=== PATIENT | male | born 1995 | race Caucasian/White ===

== ENCOUNTER 2016-06-13 22:35 | Emergency (ER) | payer OTHER ==
--- NOTE | 2016-06-13 23:36 | ED CLINICAL REPORT ---
Clinical Report - Physicians/Mid Levels [facility] [address] [place] [address] 06/13/2016 22:36 Patient: PRIYANKA IVEY Time Seen: 22:44; initial patient contact, initial documentation, patient care assumed. Arrived- By private vehicle. Historian- patient and spouse. HISTORY OF PRESENT ILLNESS Chief Complaint: LESION and BOIL. This started about 6 days ago and is still present. Not itchy or burning. It is described as painful. It has been located in the perianal area. No cause has been identified. Similar symptoms previously: Frequently, worse. Recent medical care: The patient was seen recently in a clinic. ( went to clinic 04/11, given rx bactrim, no better, swelling worse). REVIEW OF SYSTEMS The patient has had fever of 101 F. All systems otherwise negative, except as recorded above. PAST HISTORY See nurses notes. PROBLEMS: Diarrhea. Osteomyelitis. --22:49 Suleiman Gamez R.N. SOCIAL HISTORY Light tobacco smoker. No alcohol use or drug use. No recent travel. Is a local resident. He lives with spouse. FAMILY HISTORY Negative. ADDITIONAL NOTES The nursing notes have been reviewed with agreement regarding the chief complaint, HPI, ROS, PMH and patient medications and allergies. PHYSICAL EXAM Vital Signs: 06/13/2016 22:43 BP: 120/72. HR: 100. RR: 16. O2 saturation: 99%. Temp: 99.2 F. Have been reviewed as normal and appear to be correct. Appearance: Alert. Oriented X3. No acute distress. Neck: Neck supple. Respiratory: No respiratory distress. Skin: Skin warm and dry. Normal skin color. No rash. Normal skin turgor. Single medium abscess with fluctuance and pointing to the perianal area. No drainage or cellulitis. Extremities: Normal external inspection. Extremities nontender. Neuro: Oriented X 3. No motor deficit. No sensory deficit. PROGRESS AND PROCEDURES Incision & Drainage of Abscess: The abscess is located in the perianal area. The risks of the procedure, benefits and alternatives were explained. Consent was obtained. Local anesthesia provided using 1% lidocaine. Skin cleansed with Betadine. The abscess was incised with a #11 surgical blade. A large amount of pus was drained. Cavity was irrigated with saline and packed with gauze. Sample obtained for cultures. Estimated blood loss: 30 mL. ( probed to break up inoculates, packed with 1/4inch iodoform, tolerated procedure well without issues). Patient and spouse counseled in person regarding the patient's stable condition and diagnosis. 23:28. Differential Diagnosis: Other possible considerations: abscess, hemorrhoid, fistula. Above considerations are based on history and physical exam. Differential diagnosis was discussed with patient and patient's spouse. Disposition: Discharged home in good and improved condition (23:28). Condition: good and stable. CLINICAL IMPRESSION Single deep abscess with incision and drainage. INSTRUCTIONS Warnings: GENERAL WARNINGS: Return or contact your physician immediately if your condition worsens or changes unexpectedly, if not improving as expected, or if other problems arise. Specifically return if problem worsens. Prescription Medications: Zofran 4 mg: Take 1 orally every six hours as needed for nausea/vomiting. Dispense ten (10). No refills. Substitution is permissible. R[place]y 5 mg / 325 mg tablets: take 1 to 2 orally every 6 hours as needed for pain. Dispense fifteen (15). No refills. Substitution is permissible. Motrin 800 mg tablets: take 1 tablet orally every 8 hours as needed for pain. Dispense thirty (30). No refills. Substitution is permissible. Follow-up: Follow up with your doctor in two days as needed and for packing removal. Call for an appointment. Summary of care provided to patient and family. Understanding of the discharge instructions verbalized by patient. Follow-up with: Vicente Roland MD, General Surgeon, , [facility], [address] [place] [address] Follow up in about one week as needed. Call for an appointment. Summary of care provided to patient. (Electronically signed by Cecily Landin A.R.N.P. 06/14/2016 14:38)
--- NOTE | 2016-06-13 23:36 | ED CLINICAL REPORT ---
Clinical Report - Physicians/Mid Levels [facility] [address] [place] [address] 06/13/2016 22:36 Patient: PRIYANKA IVEY Time Seen: 22:44; initial patient contact, initial documentation, patient care assumed. Arrived- By private vehicle. Historian- patient and spouse. HISTORY OF PRESENT ILLNESS Chief Complaint: LESION and BOIL. This started about 6 days ago and is still present. Not itchy or burning. It is described as painful. It has been located in the perianal area. No cause has been identified. Similar symptoms previously: Frequently, worse. Recent medical care: The patient was seen recently in a clinic. ( went to clinic 04/11, given rx bactrim, no better, swelling worse). REVIEW OF SYSTEMS The patient has had fever of 101 F. All systems otherwise negative, except as recorded above. PAST HISTORY See nurses notes. PROBLEMS: Diarrhea. Osteomyelitis. --22:49 Suleiman Gamez R.N. SOCIAL HISTORY Light tobacco smoker. No alcohol use or drug use. No recent travel. Is a local resident. He lives with spouse. FAMILY HISTORY Negative. ADDITIONAL NOTES The nursing notes have been reviewed with agreement regarding the chief complaint, HPI, ROS, PMH and patient medications and allergies. PHYSICAL EXAM Vital Signs: 06/13/2016 22:43 BP: 120/72. HR: 100. RR: 16. O2 saturation: 99%. Temp: 99.2 F. Have been reviewed as normal and appear to be correct. Appearance: Alert. Oriented X3. No acute distress. Neck: Neck supple. Respiratory: No respiratory distress. Skin: Skin warm and dry. Normal skin color. No rash. Normal skin turgor. Single medium abscess with fluctuance and pointing to the perianal area. No drainage or cellulitis. Extremities: Normal external inspection. Extremities nontender. Neuro: Oriented X 3. No motor deficit. No sensory deficit. PROGRESS AND PROCEDURES Incision & Drainage of Abscess: The abscess is located in the perianal area. The risks of the procedure, benefits and alternatives were explained. Consent was obtained. Local anesthesia provided using 1% lidocaine. Skin cleansed with Betadine. The abscess was incised with a #11 surgical blade. A large amount of pus was drained. Cavity was irrigated with saline and packed with gauze. Sample obtained for cultures. Estimated blood loss: 30 mL. ( probed to break up inoculates, packed with 1/4inch iodoform, tolerated procedure well without issues). Patient and spouse counseled in person regarding the patient's stable condition and diagnosis. 23:28. Differential Diagnosis: Other possible considerations: abscess, hemorrhoid, fistula. Above considerations are based on history and physical exam. Differential diagnosis was discussed with patient and patient's spouse. Disposition: Discharged home in good and improved condition (23:28). Condition: good and stable. CLINICAL IMPRESSION Single deep abscess with incision and drainage. INSTRUCTIONS Warnings: GENERAL WARNINGS: Return or contact your physician immediately if your condition worsens or changes unexpectedly, if not improving as expected, or if other problems arise. Specifically return if problem worsens. Prescription Medications: Zofran 4 mg: Take 1 orally every six hours as needed for nausea/vomiting. Dispense ten (10). No refills. Substitution is permissible. [place] 5 mg / 325 mg tablets: take 1 to 2 orally every 6 hours as needed for pain. Dispense fifteen (15). No refills. Substitution is permissible. Motrin 800 mg tablets: take 1 tablet orally every 8 hours as needed for pain. Dispense thirty (30). No refills. Substitution is permissible. Follow-up: Follow up with your doctor in two days as needed and for packing removal. Call for an appointment. Summary of care provided to patient and family. Understanding of the discharge instructions verbalized by patient. Follow-up with: Vicente Roland MD, General Surgeon, , [facility], [address] [place] [address] Follow up in about one week as needed. Call for an appointment. Summary of care provided to patient. (Electronically signed by Cecily Landin A.R.N.P. 06/14/2016 14:38)
--- NOTE | 2016-06-13 23:36 | ED NURSING NOTES ---
Clinical Report - Nurses [facility] [address] [place] [address] 06/13/2016 22:36 Patient: PRIYANKA IVEY TRIAGE Triage time 2243. Acuity: LEVEL 3. Chief Complaint: SKIN LESION and TENDER AREA. --22:56 Suleiman Gamez R.N. 22:43 06/13/16. BP: 120/72. HR: 100. RR: 16. O2 saturation: 99%. Temp: 99.2 F. Pain level now 03/09. --22:56 Suleiman Gamez R.N. Weight: 146.5 kg stated. Height/Length: 73 inches Per Patient. BMI: 42.6. --22:56 Suleiman Gamez R.N. Medications Sulfamethoxazole-Trimethoprim Oral. --22:49 Suleiman Gamez R.N. Allergies No Known Drug Allergy. --22:49 Suleiman Gamez R.N. History Arrived by private vehicle, and accompanied by spouse. Reported as located on the perineum. It is described as painful. 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 PAST MEDICAL HX: ( pt has had 4 previous. sent to specialist for r/o fistula. pt states this is the worst it has ever been.). SOCIAL HX: Light tobacco smoker- less than 1/2 a pack per day. The patient may have been exposed to MRSA. FALL RISK ASSESSMENT: Fall risk assessment completed. No fall risk identified. NUTRITIONAL RISK ASSESSMENT: The nutritional risk assessment revealed no deficiencies. FUNCTIONAL ASSESSMENT: Functional assessment: no impairments noted. LEARNING NEEDS ASSESSMENT: The learning needs assessment revealed no barriers. SKIN INTEGRITY ASSESSMENT: Skin integrity risk assessment completed. No skin integrity risk identified. --22:56 Suleiman Gamez R.N. PROBLEMS: Diarrhea. Osteomyelitis. --22:49 Suleiman Gamez R.N. Interventions ID band on patient. --22:56 Suleiman Gamez R.N. PHYSICAL ASSESSMENT Ambulatory to room. GENERAL / NEURO / PSYCH: Alert. Oriented X 4. HEENT: Mucous membranes are pink. RESPIRATORY: Respirations not labored. CVS: Capillary refill less than 2 seconds. GI / : Abdomen nontender. SKIN: Skin is warm and dry. Normal skin turgor. --22:56 Suleiman Gamez R.N. NURSING PROGRESS NOTES Patient gowned. Head of bed elevated. Reassurance given. Patient identifiers checked. Call light placed in reach. Side rails up x 2. Bed placed in lowest position. Brakes of bed on. --22:56 Suleiman Gamez R.N. ( wound dressing provided. pt is familiar with care from previous.). --23:28 Suleiman Gamez R.N. 23:31 06/13/2016 Hydrocodone-APAP (Hydrocodone-Acetaminophen) PO 5/325 mg Tablets 1 tab given. Allergies verified, confirmed 5 rights and sedative warning given to the patient and patient's family. --23:31 Suleiman Gamez R.N. DISPOSITION / DISCHARGE Departure time: 2355. Condition at departure: improved and stable. No learning barriers present. Discharge instructions provided and reviewed with the patient and spouse. Reviewed warnings. Reviewed medication(s). Treatments reviewed. Reviewed referrals. Activity restrictions reviewed. Patient and spouse verbalized understanding. Written instructions provided in Polish. The patient was discharged by the physician assistant manager. He was discharged home and accompanied by spouse. He left the Emergency Department ambulatory and via private vehicle. Spouse driving. FALL RISK ASSESSMENT: Fall risk assessment completed. No fall risk identified. --00:21 Suleiman Gamez R.N. 00:18 06/14/16. BP: 132/68. HR: 88. RR: 16. O2 saturation: 99%. Temp: 99 F. Pain level now 03/09. --00:21 Suleiman Gamez R.N. Locked/Released at 06/14/2016 0:22 by Suleiman Gamez R.N.
--- NOTE | 2016-06-13 23:36 | ED ORDER SUMMARY ---
..... Patient: PRIYANKA IVEY OrderSheet [facility] VisitID: [id number] [address] [place] [address] 21y, M Registration Date/Time: 06/13/2016 ORDER SHEET Weight: 146.5 kg (stated) Allergies: No Known Drug Allergy GENERAL ORDERS: I&D Tray (22:52 06/13/2016 HBivens A.R.N.P.) (23:15 JBullard R.N.) Dress Wounds (22:52 06/13/2016 HBivens A.R.N.P.) (23:27 JBullard R.N.) Culture, Wound Deep (Incision) (perianal) Urgent (23:29 06/13/2016 HBivens A.R.N.P.) (23:31 JBullard R.N.) MEDICATION ORDERS: Hydrocodone-APAP PO 5/325 mg (NOW, HIGH ALERT MEDICATION) (23:25 06/13/2016 HBivens A.R.N.P.) (23:31 JBullard R.N.) IV FLUIDS: ORDER SHEET NOTES: [Electronically signed by Suleiman Gamez R.N. (00:22 06/14/2016)] [Electronically signed by Cecily LandinR.N.P. (14:38 06/14/2016)] [Electronically locked/signed by Suleiman Gamez R.N. (00:22 06/14/2016)]
--- NOTE | 2016-06-13 23:36 | ED ORDER SUMMARY ---
..... Patient: PRIYANKA IVEY OrderSheet [facility] VisitID: [id number] [address] [place] [address] 21y, M Registration Date/Time: 06/13/2016 ORDER SHEET Weight: 146.5 kg (stated) Allergies: No Known Drug Allergy GENERAL ORDERS: I&D Tray (22:52 06/13/2016 HBivens A.R.N.P.) (23:15 JBullard R.N.) Dress Wounds (22:52 06/13/2016 HBivens A.R.N.P.) (23:27 JBullard R.N.) Culture, Wound Deep (Incision) (perianal) Urgent (23:29 06/13/2016 HBivens A.R.N.P.) (23:31 JBullard R.N.) MEDICATION ORDERS: Hydrocodone-APAP PO 5/325 mg (NOW, HIGH ALERT MEDICATION) (23:25 06/13/2016 HBivens A.R.N.P.) (23:31 JBullard R.N.) IV FLUIDS: ORDER SHEET NOTES: [Electronically signed by Suleiman Gamez R.N. (00:22 06/14/2016)] [Electronically signed by Cecily LandinR.N.P. (14:38 06/14/2016)] [Electronically locked/signed by Suleiman Gamez R.N. (00:22 06/14/2016)]
--- NOTE | 2016-06-13 23:36 | ED NURSING NOTES ---
Clinical Report - Nurses [facility] [address] [place] [address] 06/13/2016 22:36 Patient: PRIYANKA IVEY TRIAGE Triage time 2243. Acuity: LEVEL 3. Chief Complaint: SKIN LESION and TENDER AREA. --22:56 Suleiman Gamez R.N. 22:43 06/13/16. BP: 120/72. HR: 100. RR: 16. O2 saturation: 99%. Temp: 99.2 F. Pain level now 03/09. --22:56 Suleimna Gamez R.N. Weight: 146.5 kg stated. Height/Length: 73 inches Per Patient. BMI: 42.6. --22:56 Suleiman Gamez R.N. Medications Sulfamethoxazole-Trimethoprim Oral. --22:49 Suleiman Gamez R.N. Allergies No Known Drug Allergy. --22:49 Suleiman Gamez R.N. History Arrived by private vehicle, and accompanied by spouse. Reported as located on the perineum. It is described as painful. 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 PAST MEDICAL HX: ( pt has had 4 previous. sent to specialist for r/o fistula. pt states this is the worst it has ever been.). SOCIAL HX: Light tobacco smoker- less than 1/2 a pack per day. The patient may have been exposed to MRSA. FALL RISK ASSESSMENT: Fall risk assessment completed. No fall risk identified. NUTRITIONAL RISK ASSESSMENT: The nutritional risk assessment revealed no deficiencies. FUNCTIONAL ASSESSMENT: Functional assessment: no impairments noted. LEARNING NEEDS ASSESSMENT: The learning needs assessment revealed no barriers. SKIN INTEGRITY ASSESSMENT: Skin integrity risk assessment completed. No skin integrity risk identified. --22:56 Suleiman Gamez R.N. PROBLEMS: Diarrhea. Osteomyelitis. --22:49 Suleiman Gamez R.N. Interventions ID band on patient. --22:56 Suleiman Gamez R.N. PHYSICAL ASSESSMENT Ambulatory to room. GENERAL / NEURO / PSYCH: Alert. Oriented X 4. HEENT: Mucous membranes are pink. RESPIRATORY: Respirations not labored. CVS: Capillary refill less than 2 seconds. GI / : Abdomen nontender. SKIN: Skin is warm and dry. Normal skin turgor. --22:56 Suleiman Gamez R.N. NURSING PROGRESS NOTES Patient gowned. Head of bed elevated. Reassurance given. Patient identifiers checked. Call light placed in reach. Side rails up x 2. Bed placed in lowest position. Brakes of bed on. --22:56 Suleiman Gamez R.N. ( wound dressing provided. pt is familiar with care from previous.). --23:28 Suleiman Gamez R.N. 23:31 06/13/2016 Hydrocodone-APAP (Hydrocodone-Acetaminophen) PO 5/325 mg Tablets 1 tab given. Allergies verified, confirmed 5 rights and sedative warning given to the patient and patient's family. --23:31 Suleiman Gamez R.N. DISPOSITION / DISCHARGE Departure time: 2355. Condition at departure: improved and stable. No learning barriers present. Discharge instructions provided and reviewed with the patient and spouse. Reviewed warnings. Reviewed medication(s). Treatments reviewed. Reviewed referrals. Activity restrictions reviewed. Patient and spouse verbalized understanding. Written instructions provided in Hong [place]er. The patient was discharged by the physician assistant in nursing. He was discharged home and accompanied by spouse. He left the Emergency Department ambulatory and via private vehicle. Spouse driving. FALL RISK ASSESSMENT: Fall risk assessment completed. No fall risk identified. --00:21 Suleiman Gamez R.N. 00:18 06/14/16. BP: 132/68. HR: 88. RR: 16. O2 saturation: 99%. Temp: 99 F. Pain level now 03/09. --00:21 Suleiman Gamez R.N. Locked/Released at 06/14/2016 0:22 by Suleiman Gamez R.N.
--- NOTE | 2016-06-14 14:38 | ED DISCHARGE INSTRUCTIONS ---
Patient: PRIYANKA IVEY General Instructions [facility] VisitID: [id number] [address] [place] [place] [address] 21y, M Registration Date/Time: 06/13/2016 Single deep abscess with incision and drainage. INSTRUCTIONS Warnings: GENERAL WARNINGS: Return or contact your physician immediately if your condition worsens or changes unexpectedly, if not improving as expected, or if other problems arise. Specifically return if problem worsens. Prescription Medications: Zofran 4 mg: Take 1 orally every six hours as needed for nausea/vomiting. Dispense ten (10). No refills. Substitution is permissible. [place] 5 mg / 325 mg tablets: take 1 to 2 orally every 6 hours as needed for pain. Dispense fifteen (15). No refills. Substitution is permissible. Motrin 800 mg tablets: take 1 tablet orally every 8 hours as needed for pain. Dispense thirty (30). No refills. Substitution is permissible. Follow-up: Follow up with your doctor in two days as needed and for packing removal. Call for an appointment. Summary of care provided to patient and family. Understanding of the discharge instructions verbalized by patient. Follow-up with: Vicente Roland MD, General Surgeon, , [facility], [address] [place] [address] Follow up in about one week as needed. Call for an appointment. Summary of care provided to patient. ADDITIONAL INFORMATION Abscess [Incision & Drainage] An abscess (sometimes called a boil) occurs when bacteria get trapped under the skin and begin to grow. Pus forms inside the abscess as the body responds to the bacteria. An abscess can occur with an insect bite, ingrown hair, blocked oil gland, pimple, cyst, or puncture wound. Treatment of your abscess has required an incision to drain the pus. If the abscess pocket was large, a gauze packing may have been inserted. This will need to be removed and possibly replaced on your next visit. Antibiotics are not required in the treatment of a simple abscess, unless the infection is spreading into the skin around the wound (known as cellulitis). Healing of the wound will take about one to two weeks depending on the size of the abscess. Healthy tissue will grow from the bottom and sides of the opening until it seals over. Home Care: The wound may drain for the first two days. Cover the wound with a clean dry dressing. If the dressing becomes soaked with blood or pus, change it. If a gauze packing was placed inside the abscess cavity, you may be advised to remove it yourself. You may do this in the shower. Once the packing is removed, you should wash the area in the shower or bath 3 to 4 times a day, until the skin opening has closed. If you were prescribed antibiotics, take them as directed until they are all gone. You may use acetaminophen (Tylenol) or ibuprofen (Motrin, Advil) to control pain, unless another pain medicine was prescribed. [ NOTE: If you have liver disease or ever had a stomach ulcer, talk with your doctor before using these medicines.] Follow Up with your doctor as advised by our staff. If a gauze packing was inserted in your wound, it should be removed in 1-2 days. Check your wound every day for the signs of worsening infection listed below. Get Prompt Medical Attention if any of the following occur: Increasing redness or swelling Red streaks in the skin leading away from the wound Increasing local pain or swelling Continued pus draining from the wound two days after treatment Fever of 100.4F (38C) or higher, or as directed by your healthcare provider Staph Infection (MRSA) "Staph" is the short name for the common bacteria called "staphylococcus aureus". Staph bacteria are often present on the skin without causing an infection. If it gets under the skin an infection occurs. This causes redness, tenderness, swelling and sometimes fluid drainage. MRSA stands for "Methicillin-Resistant Staph Aureus". Unlike a common staph infection, MRSA bacteria are resistant to the usual antibiotics and harder to treat. Also, MRSA is more toxic than common staph bacteria. It can spread quickly throughout the body and cause a life-threatening illness. MRSA is spread to others by direct physical contact with the bacteria. MRSA can also be transmitted from items contaminated by a person who has the bacteria, such as bandages, towels, bed sheets, or sports equipment. It is not spread through the air. Once you have a MRSA skin infection, you are at risk of having it recur in the future. If MRSA infection is suspected, the doctor may take a wound culture to confirm the diagnosis. Any abscess will be drained. One or sometimes two antibiotics that work against MRSA will be prescribed. Home Care: 1) Take any antibiotics prescribed exactly as directed until they are gone. 2) Follow the same washing procedures as outlined for Household Members below. 3) Keep draining wounds covered with clean, dry bandages. Change dressings as they become soiled. 4) You and those in contact with you should wash their hands frequently with soap and warm water or use an alcohol-based hand format proofreader. Do this after each time you change the bandage or touch the wound. 5) Avoid sharing personal items such as towels, washcloths, razors, clothing, or uniforms. Wash soiled sheets, towels or clothes in hot water with laundry detergent. Use an automatic clothes dryer set on high to kill any remaining bacteria. 6) Remove any artificial nails and nail guyanese. 7) If you use a gym, wipe down equipment before and after each use. Treatment Of Household Members If you have been diagnosed with possible MRSA infection, those living with you are at higher risk of carrying the bacteria on their skin or in their nose, even if there is no sign of infection. Bacteria must be removed from the skin of all household members (including you) at the same time, so that it is not passed back and forth. Advise them to remove the bacteria as follows: Wash your whole body (scalp to toes) daily for five days with Hibiclens (chlorhexidine). Scrub fingernails with a brush for one minute twice a day. If any skin infections are present (boils, abscess, infected cut) these must be treated by a doctor. Washing alone will not treat a MRSA infection. Clean counter tops and children's toys; do not share personal items such as toothbrush and razors. It is okay to share glasses, plates, utensils. If antibiotic ointment was prescribed use it as directed. Follow Up with your doctor or as advised by our staff. If a wound culture was taken, call as directed in two days to obtain the results. If the culture result is positive for MRSA, tell medical personnel in the future that you were treated for this type of infection. Get Prompt Medical Attention if any of the following occur: -- Increasing redness, swelling or pain -- Red streaks in the skin around the wound -- Weakness or dizziness -- New appearance of pus or drainage from the wound -- New fever over 100.4 F (38.0 C) Ondansetron Oral disintegrating tablet What is this medicine? ONDANSETRON (on TEN se justice) is used to treat nausea and vomiting caused by chemotherapy. It is also used to prevent or treat nausea and vomiting after surgery. How should I use this medicine? These tablets are made to dissolve in the mouth. Do not try to push the tablet through the foil backing. With dry hands, peel away the foil backing and gently remove the tablet. Place the tablet in the mouth and allow it to dissolve, then swallow. While you may take these tablets with water, it is not necessary to do so. Talk to your hvac service tech regarding the use of this medicine in children. Special care may be needed. What side effects may I notice from receiving this medicine? Side effects that you should report to your doctor or health customer care consultant as soon as possible: allergic reactions like skin rash, itching or hives, swelling of the face, lips, or tongue breathing problems dizziness fast or irregular heartbeat feeling faint or lightheaded, falls fever and chills swelling of the hands and feet tightness in the chest Side effects that usually do not require medical attention (report to your doctor or health customer care consultant if they continue or are bothersome): constipation or diarrhea headache What may interact with this medicine? Do not take this medicine with any of the following medications: -apomorphine -cisapride -dofetilide -dronedarone -pimozide -thioridazine -ziprasidone This medicine may also interact with the following medications: -carbamazepine -phenytoin -rifampicin -tramadol -other medicines that prolong the QT interval (cause an abnormal heart rhythm) What if I miss a dose? If you miss a dose, take it as soon as you can. If it is almost time for your next dose, take only that dose. Do not take double or extra doses. Where should I keep my medicine? Keep out of the reach of children. Store between 2 and 30 degrees C (36 and 86 degrees F). Throw away any unused medicine after the expiration date. What should I tell my health care provider before I take this medicine? They need to know if you have any of these conditions: heart disease history of irregular heartbeat liver disease low levels of magnesium or potassium in the blood an unusual or allergic reaction to ondansetron, granisetron, other medicines, foods, dyes, or preservatives or trying to get breast-feeding What should I watch for while using this medicine? Check with your doctor or health customer care consultant as soon as you can if you have any sign of an allergic reaction. Hydrocodone Bitartrate, Acetaminophen Oral tablet What is this medicine? ACETAMINOPHEN; HYDROCODONE (a set a LATRICIA ollie fen; kerri droe KOE done) is a pain reliever. It is used to treat mild to moderate pain. How should I use this medicine? Take this medicine by mouth. Swallow it with a full glass of water. Follow the directions on the prescription label. If the medicine upsets your stomach, take the medicine with food or milk. Do not take more than you are told to take. Talk to your hvac service tech regarding the use of this medicine in children. This medicine is not approved for use in children. What side effects may I notice from receiving this medicine? Side effects that you should report to your doctor or health customer care consultant as soon as possible: allergic reactions like skin rash, itching or hives, swelling of the face, lips, or tongue breathing problems confusion feeling faint or lightheaded, falls stomach pain yellowing of the eyes or skin Side effects that usually do not require medical attention (report to your doctor or health customer care consultant if they continue or are bothersome): nausea, vomiting stomach upset What may interact with this medicine? alcohol antihistamines isoniazid medicines for depression, anxiety, or psychotic disturbances medicines for sleep muscle relaxants naltrexone narcotic medicines (opiates) for pain phenobarbital ritonavir tramadol What if I miss a dose? If you miss a dose, take it as soon as you can. If it is almost time for your next dose, take only that dose. Do not take double or extra doses. Where should I keep my medicine? Keep out of the reach of children. This medicine can be abused. Keep your medicine in a safe place to protect it from theft. Do not share this medicine with anyone. Selling or giving away this medicine is dangerous and against the law. Store at room temperature between 15 and 30 degrees C (59 and 86 degrees F). Protect from light. Keep container tightly closed. Throw away any unused medicine after the expiration date. Discard unused medicine and used packaging carefully. Pets and children can be harmed if they find used or lost packages. What should I tell my health care provider before I take this medicine? They need to know if you have any of these conditions: brain tumor Crohn's disease, inflammatory bowel disease, or ulcerative colitis drink more than 3 alcohol-containing drinks per day drug abuse or addiction head injury heart or circulation problems kidney disease or problems going to the bathroom liver disease lung disease, asthma, or breathing problems an unusual or allergic reaction to acetaminophen, hydrocodone, other opioid analgesics, other medicines, foods, dyes, or preservatives or trying to get breast-feeding What should I watch for while using this medicine? Tell your doctor or health customer care consultant if your pain does not go away, if it gets worse, or if you have new or a different type of pain. You may develop tolerance to the medicine. Tolerance means that you will need a higher dose of the medicine for pain relief. Tolerance is normal and is expected if you take the medicine for a long time. Do not suddenly stop taking your medicine because you may develop a severe reaction. Your body becomes used to the medicine. This does NOT mean you are addicted. Addiction is a behavior related to getting and using a drug for a non-medical reason. If you have pain, you have a medical reason to take pain medicine. Your doctor will tell you how much medicine to take. If your doctor wants you to stop the medicine, the dose will be slowly lowered over time to avoid any side effects. You may get drowsy or dizzy when you first start taking the medicine or change doses. Do not drive, use machinery, or do anything that may be dangerous until you know how the medicine affects you. Stand or sit up slowly. There are different types of narcotic medicines (opiates) for pain. If you take more than one type at the same time, you may have more side effects. Give your health care provider a list of all medicines you use. Your doctor will tell you how much medicine to take. Do not take more medicine than directed. Call emergency for help if you have problems breathing. The medicine will cause constipation. Try to have a bowel movement at least every 2 to 3 days. If you do not have a bowel movement for 3 days, call your doctor or health customer care consultant. Too much acetaminophen can be very dangerous. Do not take Tylenol (acetaminophen) or medicines that contain acetaminophen with this medicine. Many non-prescription medicines contain acetaminophen. Always read the labels carefully. Ibuprofen Oral tablet What is this medicine? IBUPROFEN (eye BYOO proe fen) is a non-steroidal anti-inflammatory drug (NSAID). It is used for dental pain, fever, headaches or migraines, osteoarthritis, rheumatoid arthritis, or painful monthly periods. It can also relieve minor aches and pains caused by a cold, flu, or sore throat. How should I use this medicine? Take this medicine by mouth with a glass of water. Follow the directions on the prescription label. Take this medicine with food if your stomach gets upset. Try to not lie down for at least 10 minutes after you take the medicine. Take your medicine at regular intervals. Do not take your medicine more often than directed. A special MedGuide will be given to you by the pharmacist with each prescription and refill. Be sure to read this information carefully each time. Talk to your hvac service tech regarding the use of this medicine in children. Special care may be needed. What side effects may I notice from receiving this medicine? Side effects that you should report to your doctor or health customer care consultant as soon as possible: allergic reactions like skin rash, itching or hives, swelling of the face, lips, or tongue black or bloody stools, blood in the urine or in vomit breathing problems changes in vision chest pain general ill feeling or flu-like symptoms nausea or vomiting redness, blistering, peeling or loosening of the skin, including inside the mouth slurred speech or weakness on one side of the body stomach pain unexplained weight gain or swelling unusually weak or tired yellowing of eyes or skin Side effects that usually do not require medical attention (report to your doctor or health customer care consultant if they continue or are bothersome): constipation or diarrhea dizziness gas or heartburn stomach upset What may interact with this medicine? Do not take this medicine with any of the following medications: cidofovir ketorolac methotrexate pemetrexed This medicine may also interact with the following medications: alcohol aspirin diuretics lithium other drugs for inflammation like prednisone warfarin What if I miss a dose? If you miss a dose, take it as soon as you can. If it is almost time for your next dose, take only that dose. Do not take double or extra doses. Where should I keep my medicine? Keep out of the reach of children. Store at room temperature between 15 and 30 degrees C (59 and 86 degrees F). Keep container tightly closed. Throw away any unused medicine after the expiration date. What should I tell my health care provider before I take this medicine? They need to know if you have any of these conditions: asthma cigarette smoker drink more than 3 alcohol containing drinks a day heart disease or circulation problems such as heart failure or leg edema (fluid retention) high blood pressure kidney disease liver disease stomach bleeding or ulcers an unusual or allergic reaction to ibuprofen, aspirin, other NSAIDS, other medicines, foods, dyes, or preservatives or trying to get breast-feeding What should I watch for while using this medicine? Tell your doctor or healthcare professional if your symptoms do not start to get better or if they get worse. This medicine does not prevent heart attack or stroke. In fact, this medicine may increase the chance of a heart attack or stroke. The chance may increase with longer use of this medicine and in people who have heart disease. If you take aspirin to prevent heart attack or stroke, talk with your doctor or health customer care consultant. Do not take other medicines that contain aspirin, ibuprofen, or naproxen with this medicine. Side effects such as stomach upset, nausea, or ulcers may be more likely to occur. Many medicines available without a prescription should not be taken with this medicine. This medicine can cause ulcers and bleeding in the stomach and intestines at any time during treatment. Ulcers and bleeding can happen without warning symptoms and can cause . To reduce your risk, do not smoke cigarettes or drink alcohol while you are taking this medicine. You may get drowsy or dizzy. Do not drive, use machinery, or do anything that needs mental alertness until you know how this medicine affects you. Do not stand or sit up quickly, especially if you are an older patient. This reduces the risk of dizzy or fainting spells. This medicine can cause you to bleed more easily. Try to avoid damage to your teeth and gums when you brush or floss your teeth. You have been given the following additional information: Abscess, Incision And Drainage MRSA Skin Infection, Suspected Or Confirmed Ondansetron Oral disintegrating tablet Hydrocodone Bitartrate, Acetaminophen Oral tablet Ibuprofen Oral tablet (Electronically signed by Cecily Landin A.R.N.P. 06/14/2016 14:38)
--- NOTE | 2016-06-14 14:39 | ED MAR SUMMARY ---
..... Medication Administration Record [facility] [address] [place] [address] Patient: PRIYANKA IVEY Visit ID: [id number] 21y, M Weight: 146.5 kg Height/Length: 73 in BMI: 42.6 ALLERGIES: No Known Drug Allergy Given 23:31 06/13/2016 Suleiman Gamez R.N. Medication Administered: HYDROCODONE-APAP [PO] (HYDROCODONE-ACETAMINOPHEN), Dose: 1 tab 5/325 mg Tablets PO. Medication Ordered: Hydrocodone-APAP PO 5/325 mg (NOW, HIGH ALERT MEDICATION).
--- NOTE | 2016-06-14 14:39 | ED MED RECONCILIATION SUMMARY ---
Patient: PRIYANKA IVEY Medication Reconciliation Report [facility] VisitID: [id number] [address] [place] [address] 21y, M Registration Date/Time: 06/13/2016 Weight: 146.5 kg Height/Length: 73 in. BMI: 42.6 ALLERGIES: No Known Drug Allergy The patient's Home Medications are listed below: THE FOLLOWING MEDICATIONS NEED TO BE RECONCILED: Sulfamethoxazole-Trimethoprim Oral The source(s) of the original Home Medication information: Not obtained. The following Medications were given to the patient in the Emergency Department: Hydrocodone-APAP [PO] PO 1 tab, administered: 06/13/2016 11:31:00 PM The following Medications were prescribed to the patient: Zofran 4 mg: Take 1 orally every six hours as needed for nausea/vomiting. Dispense ten (10). No refills. Substitution is permissible. -- Cecily Landin, A.R.N.P. [place] 5 mg / 325 mg tablets: take 1 to 2 orally every 6 hours as needed for pain. Dispense fifteen (15). No refills. Substitution is permissible. -- Cecily Landin, A.R.N.P. Motrin 800 mg tablets: take 1 tablet orally every 8 hours as needed for pain. Dispense thirty (30). No refills. Substitution is permissible. -- Cecily Landin A.R.N.P.
--- NOTE | 2016-06-14 14:39 | ED MAR SUMMARY ---
..... Medication Administration Record [facility] [address] [place] [address] Patient: PRIYANKA IVEY Visit ID: [id number] 21y, M Weight: 146.5 kg Height/Length: 73 in BMI: 42.6 ALLERGIES: No Known Drug Allergy Given 23:31 06/13/2016 Suleiman Gamez R.N. Medication Administered: HYDROCODONE-APAP [PO] (HYDROCODONE-ACETAMINOPHEN), Dose: 1 tab 5/325 mg Tablets PO. Medication Ordered: Hydrocodone-APAP PO 5/325 mg (NOW, HIGH ALERT MEDICATION).
--- NOTE | 2016-06-14 14:39 | ED MED RECONCILIATION SUMMARY ---
Patient: PRIYANKA IVEY Medication Reconciliation Report [facility] VisitID: [id number] [address] [place] [address] 21y, M Registration Date/Time: 06/13/2016 Weight: 146.5 kg Height/Length: 73 in. BMI: 42.6 ALLERGIES: No Known Drug Allergy The patient's Home Medications are listed below: THE FOLLOWING MEDICATIONS NEED TO BE RECONCILED: Sulfamethoxazole-Trimethoprim Oral The source(s) of the original Home Medication information: Not obtained. The following Medications were given to the patient in the Emergency Department: Hydrocodone-APAP [PO] PO 1 tab, administered: 06/13/2016 11:31:00 PM The following Medications were prescribed to the patient: Zofran 4 mg: Take 1 orally every six hours as needed for nausea/vomiting. Dispense ten (10). No refills. Substitution is permissible. -- Cecily Landin, A.R.N.P. [place] 5 mg / 325 mg tablets: take 1 to 2 orally every 6 hours as needed for pain. Dispense fifteen (15). No refills. Substitution is permissible. -- Cecily Landin, A.R.N.P. Motrin 800 mg tablets: take 1 tablet orally every 8 hours as needed for pain. Dispense thirty (30). No refills. Substitution is permissible. -- Cecily Landin A.R.N.P.
== END 2016-06-13 23:55 | disposition home or self-care (01) ==
LOC: ED SRH 22:35
DX: K61.0 Anal abscess (principal); F17.200 Nicotine dependence, unspecified, uncomplicated
CPT/HCPCS: 90070; 90131; 90309; 90470

== ENCOUNTER 2016-06-17 22:15 | Emergency (ER) | payer OTHER ==
--- NOTE | 2016-06-18 00:27 | DIAGNOSTIC IMAGING REPORT ---
PROCEDURE: XR SHOULDER 2 OR MORE VW-RIGHT INDICATION: TRAUMA/INJURY TECHNIQUE: Three views. COMPARISON: None. FINDINGS: Osseous structures and joint spaces are normal. IMPRESSION: 1. Normal right shoulder.
--- NOTE | 2016-06-18 00:29 | DIAGNOSTIC IMAGING REPORT ---
PROCEDURE: CT HEAD WITHOUT CONTRAST INDICATION: TRAUMA/INJURY TECHNIQUE: Noncontrast axial images with sagittal and coronal reformations. COMPARISON: None. FINDINGS: Brain and ventricles are normal. No evidence of an acute process or hemorrhage. Sinuses and mastoids are normal. IMPRESSION: 1. Negative head CT. 2. Findings discussed with Dr. Caleb Riley at [address] scans at this facility use dose modulation, iterative reconstruction, and/or weight-based dosing when appropriate to reduce radiation dose to as low as reasonably achievable.
--- NOTE | 2016-06-18 00:44 | DIAGNOSTIC IMAGING REPORT ---
PROCEDURE: CT CERVICAL SPINE W/O CONTRAST INDICATION: TRAUMA/INJURY TECHNIQUE: Noncontrast axial images with sagittal and coronal reformations. COMPARISON: None. FINDINGS: There is a moderate dextroscoliosis of the lower cervical spine (10 degrees) with mild compensatory levoscoliosis of the upper cervical spine. There is reversal of the upper cervical lordosis. Asymmetry of the lateral masses and odontoid process of C2 with mild degenerative changes of the occipital condyles and lateral masses C1. The rest of the osseous structures and disc spaces are normal. IMPRESSION: 1. Mild biconvex scoliosis of the cervical spine. 2. Reversal of cervical lordosis compatible with degenerative changes or cervical spasm. 3. There is asymmetry of the lateral masses and odontoid process of C2 with degenerative changes of the C1 occipital junction. Overall appearance suggests changes are most likely congenital/degenerative, although could be related to old injury/fracture. An acute fracture is much less likely. MRI of the cervical spine may be of assistance in clarifying. 4. Findings discussed with Dr. Caleb Riley. All CT scans at this facility use dose modulation, iterative reconstruction, and/or weight-based dosing when appropriate to reduce radiation dose to as low as reasonably achievable.
--- NOTE | 2016-06-18 02:49 | ED ORDER SUMMARY ---
..... Patient: PRIYANKA IVEY OrderSheet [facility] VisitID: [id number] [place] [address] 21y, M Registration Date/Time: 06/17/2016 ORDER SHEET Weight: 146.5 kg (stated) Allergies: No Known Drug Allergy GENERAL ORDERS: CT Head wo Cont Urgent (23:39 06/17/2016 Tyler Miller) (Ack 23:41 AMcQuoid ER Tech1) (0:26 GUnger) CT Cervical Spine wo Cont Urgent (23:40 06/17/2016 Tyler Miller) (Ack 23:41 AMcQuoid ER Tech1) (0:26 GUnger) Shoulder 2V or more Right Urgent (23:40 06/17/2016 Tyler Miller) (Ack 23:41 AMcQuoid ER Tech1) (0:26 GUnger) Ice (23:40 06/17/2016 Tyler Miller) (23:51 HSoule) (23:51 AMcQuoid ER Tech1) CBC w Diff Urgent (02:43 06/18/2016 Tyler Miller) (Cancelled: Other3:11 AMcQuoid ER Tech1) CMP Urgent (02:43 06/18/2016 Tyler Miller) (Cancelled: Other3:11 AMcQuoid ER Tech1) UA-Culture if indicated Urgent (02:43 06/18/2016 Tyler Miller) (Cancelled: Other3:11 AMcQuoid ER Tech1) PT with INR Urgent (02:43 06/18/2016 Tyler Miller) (Cancelled: Other3:11 AMcQuoid ER Tech1) PTT Urgent (02:43 06/18/2016 Tyler Miller) (Cancelled: Other3:11 AMcQuoid ER Tech1) Lipase Urgent (02:43 06/18/2016 Tyler Miller) (Cancelled: Other3:11 AMcQuoid ER Tech1) MEDICATION ORDERS: Percocet PO 5/325 mg (HIGH ALERT MEDICATION, NOW) (23:40 06/17/2016 Tyler Miller) (Ack 23:41 RCollier R.N.) (23:44 RCollier R.N.) Ampicillin IV 1 gm/50mL (NOW) (03:19 06/18/2016 Tyler Miller) (Ack 3:23 HSoule) (3:30 HSoule) Tylenol PO 650 mg (NOW) (03:20 06/18/2016 Tyler Miller) (Ack 3:23 HSoule) (3:30 HSoule) IV FLUIDS: IV NS : initial bolus none -, then 150 mL/hr for X1 (NOW) (02:42 06/18/2016 Tyler Miller) (Ack 2:53 HSoule) (3:18 HSoule) ORDER SHEET NOTES: [Electronically signed by Dilma Gunn (05:04 06/18/2016)] [Electronically signed by Caleb Riley Dr. (23:28 06/24/2016)] [Electronically locked/signed by Dilma Gunn (05:04 06/18/2016)]
--- NOTE | 2016-06-18 02:49 | ED ORDER SUMMARY ---
..... Patient: PRIYANKA IVEY OrderSheet [facility] VisitID: [id number] [place] [address] 21y, M Registration Date/Time: 06/17/2016 ORDER SHEET Weight: 146.5 kg (stated) Allergies: No Known Drug Allergy GENERAL ORDERS: CT Head wo Cont Urgent (23:39 06/17/2016 Tyler Miller) (Ack 23:41 AMcQuoid ER Tech1) (0:26 GUnger) CT Cervical Spine wo Cont Urgent (23:40 06/17/2016 Tyler Miller) (Ack 23:41 AMcQuoid ER Tech1) (0:26 GUnger) Shoulder 2V or more Right Urgent (23:40 06/17/2016 Tyler Miller) (Ack 23:41 AMcQuoid ER Tech1) (0:26 GUnger) Ice (23:40 06/17/2016 Tyler Miller) (23:51 HSoule) (23:51 AMcQuoid ER Tech1) CBC w Diff Urgent (02:43 06/18/2016 Tyler Miller) (Cancelled: Other3:11 AMcQuoid ER Tech1) CMP Urgent (02:43 06/18/2016 Tyler Miller) (Cancelled: Other3:11 AMcQuoid ER Tech1) UA-Culture if indicated Urgent (02:43 06/18/2016 Tyler Miller) (Cancelled: Other3:11 AMcQuoid ER Tech1) PT with INR Urgent (02:43 06/18/2016 Tyler Miller) (Cancelled: Other3:11 AMcQuoid ER Tech1) PTT Urgent (02:43 06/18/2016 Tyler Miller) (Cancelled: Other3:11 AMcQuoid ER Tech1) Lipase Urgent (02:43 06/18/2016 Tyler Miller) (Cancelled: Other3:11 AMcQuoid ER Tech1) MEDICATION ORDERS: Percocet PO 5/325 mg (HIGH ALERT MEDICATION, NOW) (23:40 06/17/2016 Tyler Miller) (Ack 23:41 RCollier R.N.) (23:44 RCollier R.N.) Ampicillin IV 1 gm/50mL (NOW) (03:19 06/18/2016 Tyler Miller) (Ack 3:23 HSoule) (3:30 HSoule) Tylenol PO 650 mg (NOW) (03:20 06/18/2016 Tyler Miller) (Ack 3:23 HSoule) (3:30 HSoule) IV FLUIDS: IV NS : initial bolus none -, then 150 mL/hr for X1 (NOW) (02:42 06/18/2016 Tyler Miller) (Ack 2:53 HSoule) (3:18 HSoule) ORDER SHEET NOTES: [Electronically signed by Dilma Gunn (05:04 06/18/2016)] [Electronically signed by Caleb Riley Dr. (23:28 06/24/2016)] [Electronically locked/signed by Dilma Gunn (05:04 06/18/2016)]
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
--- NOTE | 2016-06-24 23:28 | ED MED RECONCILIATION SUMMARY ---
Patient: PRIYANKA IVEY Medication Reconciliation Report [facility] VisitID: [id number] [address] [place] [address] 21y, M Registration Date/Time: 06/17/2016 Weight: 146.5 kg Height/Length: 73 in. BMI: 42.6 ALLERGIES: No Known Drug Allergy The patient's Home Medications are listed below: THE FOLLOWING MEDICATIONS NEED TO BE RECONCILED: Macrobid Oral [place] Oral The source(s) of the original Home Medication information: patient The following Medications were given to the patient in the Emergency Department: Percocet [PO] PO 1 tab, administered: 06/17/2016 11:44:00 PM IV NS IV Fluids bolus 0, then 150 mL/hr, administered: 06/18/2016 3:18:00 AM Tylenol [PO] PO 650 mg, administered: 06/18/2016 3:30:00 AM Ampicillin [IVPB] IVPB bolus 0, then 1 gm 100 mL/hr, administered: 06/18/2016 3:30:00 AM The following Medications were prescribed to the patient: Ampicillin 500 mg: take 1 capsule orally every 6 hours for 7 days. No refills. -- Caleb Riley Dr.
--- NOTE | 2016-06-24 23:28 | ED MAR SUMMARY ---
..... Medication Administration Record [facility] [address] [place] [address] Patient: PRIYANKA IVEY Visit ID: [id number] 21y, M Weight: 146.5 kg Height/Length: 73 in BMI: 42.6 ALLERGIES: No Known Drug Allergy Given 23:44 06/17/2016 Adrienne Paul R.N. Medication Administered: PERCOCET [PO] (OXYCODONE-ACETAMINOPHEN), Dose: 1 tab 5/325 mg Tablets PO. Medication Ordered: Percocet PO 5/325 mg (HIGH ALERT MEDICATION, NOW). Start 03:18 06/18/2016 Dilma Gunn, Medication Administered: IV NS (SALINE), Dose: IV Fluids over 7 hour(s), Rate: 150 mL/hr, Dispensed: 1000 mL bag, Site: #1 right AC. Medication Ordered: IV NS : initial bolus none -, then 150 mL/hr for X1 (NOW). Start 03:06/18/2016 Dilma Gunn,, Continued Upon Transfer 03:31 06/18/2016 Dilma Gunn, Medication Administered: AMPICILLIN [IVPB], Dose: 1 gm IVPB over 30 minute(s), Rate: 100 mL/hr, Dispensed: 50 mL bag, Site: #1. Medication Ordered: Ampicillin IV 1 gm/50mL (NOW). Given 03:30 06/18/2016 Dilma Gunn, Medication Administered: TYLENOL [PO] (ACETAMINOPHEN), Dose: 650 mg Capsules PO. Medication Ordered: Tylenol PO 650 mg (NOW).
--- NOTE | 2016-06-24 23:28 | ED MED RECONCILIATION SUMMARY ---
Patient: PRIYANKA IVEY Medication Reconciliation Report [facility] VisitID: [id number] [address] [place] [address] 21y, M Registration Date/Time: 06/17/2016 Weight: 146.5 kg Height/Length: 73 in. BMI: 42.6 ALLERGIES: No Known Drug Allergy The patient's Home Medications are listed below: THE FOLLOWING MEDICATIONS NEED TO BE RECONCILED: Macrobid Oral [place] Oral The source(s) of the original Home Medication information: patient The following Medications were given to the patient in the Emergency Department: Percocet [PO] PO 1 tab, administered: 06/17/2016 11:44:00 PM IV NS IV Fluids bolus 0, then 150 mL/hr, administered: 06/18/2016 3:18:00 AM Tylenol [PO] PO 650 mg, administered: 06/18/2016 3:30:00 AM Ampicillin [IVPB] IVPB bolus 0, then 1 gm 100 mL/hr, administered: 06/18/2016 3:30:00 AM The following Medications were prescribed to the patient: Ampicillin 500 mg: take 1 capsule orally every 6 hours for 7 days. No refills. -- Caleb Riley Dr.
--- NOTE | 2016-06-24 23:28 | ED MAR SUMMARY ---
..... Medication Administration Record [facility] [address] [place] [address] Patient: PRIYANKA IVEY Visit ID: [id number] 21y, M Weight: 146.5 kg Height/Length: 73 in BMI: 42.6 ALLERGIES: No Known Drug Allergy Given 23:44 06/17/2016 Adrienne Paul R.N. Medication Administered: PERCOCET [PO] (OXYCODONE-ACETAMINOPHEN), Dose: 1 tab 5/325 mg Tablets PO. Medication Ordered: Percocet PO 5/325 mg (HIGH ALERT MEDICATION, NOW). Start 03:18 06/18/2016 Dilma Gunn, Medication Administered: IV NS (SALINE), Dose: IV Fluids over 7 hour(s), Rate: 150 mL/hr, Dispensed: 1000 mL bag, Site: #1 right AC. Medication Ordered: IV NS : initial bolus none -, then 150 mL/hr for X1 (NOW). Start 03:06/18/2016 Dilma Gunn,, Continued Upon Transfer 03:31 06/18/2016 Dilma Gunn, Medication Administered: AMPICILLIN [IVPB], Dose: 1 gm IVPB over 30 minute(s), Rate: 100 mL/hr, Dispensed: 50 mL bag, Site: #1. Medication Ordered: Ampicillin IV 1 gm/50mL (NOW). Given 03:30 06/18/2016 Dilma Gunn, Medication Administered: TYLENOL [PO] (ACETAMINOPHEN), Dose: 650 mg Capsules PO. Medication Ordered: Tylenol PO 650 mg (NOW).
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
== END 2016-06-18 03:20 | disposition short-term general hospital (02) ==
LOC: ED SRH 22:15
DX: S12.121A Other nondisplaced dens fracture, initial encounter for closed fracture (principal); G89.11 Acute pain due to trauma; M54.2 Cervicalgia; M25.511 Pain in right shoulder; V77.5XXA Driver of bus injured in collision with fixed or stationary object in traffic accident, initial encounter; Y93.84 Activity, sleeping; Y99.9 Unspecified external cause status; Y92.811 Bus as the place of occurrence of the external cause; Z79.891 Long term (current) use of opiate analgesic; Z79.2 Long term (current) use of antibiotics